=== PATIENT | male | born 1945 | race American Indian/Alaskan Native ===

== ENCOUNTER 2019-08-04 07:15 | Inpatient (IN) | payer OTHER ==
[~2019-08-04] VITALS: Ht 170.2 cm; Wt 77.1 kg
[2019-08-04] MEDS ORDERED: RELAFEN PO (08:00)
[2019-08-04] MEDS ORDERED: AMILODIPINE PO (08:00)
[2019-08-04] MEDS ORDERED: ASPIR 8181 MG PO (08:01)
[2019-08-09] MEDS ORDERED: NABUMETONE500 MG (08:06)
[2019-08-09] MEDS ORDERED: AMLODIPINE BESY10 MG PO (08:07)
[2019-08-11] MEDS ORDERED: DUI500 PO (15:50)
[2019-08-11] MEDS ORDERED: PERCOCET 5-3251 EACH PO (15:50)
[2019-08-11] MEDS ORDERED: ELIQUIS2.5 MG PO (15:50)
== END 2019-08-11 18:57 | DRG 470 ==
LOC: O/R 07:15 → SURG 08-09 05:38 → O/R 08-09 05:38 → SURG 08-09 14:01
PROVIDERS: ADMIT Orthopaedic Surgery
PROC: 0SR90J9 Replacement of Right Hip Joint with Synthetic Substitute, Cemented, Open Approach (ICD-10-PCS; principal; 2019-08-09 07:00)
DX: M16.11 Unilateral primary osteoarthritis, right hip (principal); D62 Acute posthemorrhagic anemia; M25.751 Osteophyte, right hip; M70.61 Trochanteric bursitis, right hip; I10 Essential (primary) hypertension

== ENCOUNTER 2021-02-05 17:25 | Inpatient (IN) | payer OTHER ==
[~2021-02-05] VITALS: Ht 170.2 cm; Wt 170.0 kg
[~2021-02-05 17:25] MED LIST: AMILODIPINE PO; AMLODIPINE BESY10 MG PO; ASPIR 8181 MG PO; DUI500 PO; ELIQUIS2.5 MG PO; NABUMETONE500 MG; PERCOCET 5-3251 EACH PO; RELAFEN PO
[2021-02-05] MEDS ORDERED: HYDRALAZINE HCL25 MG (17:36)
--- NOTE | 2021-02-05 17:37 | NUR ---
SE RECIBE THERMAL TECHNICIAN ALERTA Y ORIENTADO EN AMBULANCIA PARAMEDICOS REFIEREN QUE EL PTE SE CAIN EN EL PATIO DE SUCASA SE ENREDO CON UNOS CABLES EN EL PISO ,REFIERE PTE QUE SE LE DISLOCO LA CADERA DERECHA QUE FUE OPARADA POR EL EN 2019.
--- NOTE | 2021-02-05 18:19 | NUR ---
SE ORIENTA A PTE SOBRE PROCESO DE VENOPUNCION LEOLA DE MUESTRAS, ESTUDIOS A REALIZAR. PTE ES LLEVADO A AREA DE PLACA PARA REALIZAR LA MISMA. PTE SE RENNY CON AREA DE VENOPUNCION PATENTE Y LD DE EDEMA CON IV FLUID PATENTE.
--- NOTE | 2021-02-06 00:32 | NUR ---
SE RECIBE MASCULINO ALERTA EN [place] CON BARANDAS SEGURAS Y ELEVADAS, EN COMPANIA DE FAMILIAR. AREA DE VENOPUNCION LD DE EDEMA O ENROJECIMIENTO. RECIBIENDO 0.9% NSS @ 150 ML/HR. SE MANTIENE EN OBSERVACION POR CAMBIOS. EN ESPERA DE CONSULTA CON DR. SHAIKH.
--- NOTE | 2021-02-06 08:02 | NUR ---
SE RECIBE PTE DLE TURNO ANTERIOR, ALERTA Y ORIENTADO EN ANDRAE TEE ESFERAS, UBICADO EN [place] NIVEL MAS BAJO, WRIGHT DE IDENTIFICACION Y EN COMPANIA DE FAMILIAR. SE OBSERVA CON BUEN PATRON RESPIRATORIO Y PIEL TIBIA AL TACTO. IV PATENTE Y LD DE EDEMA O ERITEMA CON 0.9% NSS @150ML/HR. PENDIENTE A ENTREGAR U/A, PTE ORIENTADO SOBRE LA MISMA. PENDIENTE CONSULTA CON DR SHAIKH QUE SE ENCUENTRA EVALUANDO EL MISMO.
[2021-02-07] MEDS ORDERED: NABUMETONE750 MG (14:52)
[2021-02-07] MEDS ORDERED: PEPTO-BISM262 MG/15 (14:52)
[2021-02-08] MEDS ORDERED: DUI500 PO (08:04)
[2021-02-08] MEDS ORDERED: ULTRACET PO (08:04)
[2021-02-08] MEDS ORDERED: ELIQUIS2.5 MG PO (08:04)
== END 2021-02-08 15:00 | disposition home or self-care (01) | DRG 468 ==
LOC: ER 17:25 → SEC-K 02-06 08:10 → O/R 02-07 13:51
PROVIDERS: ADMIT Orthopaedic Surgery; ATTEND Orthopaedic Surgery
PROC: 0SW90JZ Revision of Synthetic Substitute in Right Hip Joint, Open Approach (ICD-10-PCS; principal; 2021-02-07 19:15)
DX: T84.020A Dislocation of internal right hip prosthesis, initial encounter (principal); Z96.641 Presence of right artificial hip joint; Y93.H2 Activity, gardening and landscaping; W18.39XA Other fall on same level, initial encounter; Y92.017 Garden or yard in single-family (private) house as the place of occurrence of the external cause; Y99.8 Other external cause status; I10 Essential (primary) hypertension

== ENCOUNTER 2022-04-01 18:55 | Inpatient (IN) | payer OTHER ==
[~2022-04-01] VITALS: Ht 177.8 cm; Wt 77.1 kg
[~2022-04-01 18:55] MED LIST changes: +HYDRALAZINE HCL25 MG; +NABUMETONE750 MG; +PEPTO-BISM262 MG/15; +ULTRACET PO
[2022-04-02] MEDS ORDERED: NABUMETONE750 MG (13:12)
[2022-04-02] MEDS ORDERED: HYDRALAZINE HCL25 MG (13:12)
[2022-04-02] MEDS ORDERED: ATORVASTATIN CA40 MG (13:12)
[2022-04-02] MEDS ORDERED: ST. JOSEPH ASPI81 M2 (13:12)
[2022-04-04] MEDS ORDERED: NABUMETONE750 MG PO (08:02)
== END 2022-04-04 12:44 | disposition home or self-care (01) | DRG 561 ==
LOC: ER 18:55 → SURH 04-02 04:52
PROVIDERS: Orthopaedic Surgery; ADMIT Internal Medicine; ATTEND Internal Medicine
PROC: 0SW9XJZ Revision of Synthetic Substitute in Right Hip Joint, External Approach (ICD-10-PCS; principal; 2022-04-03 13:00)
DX: T84.020A Dislocation of internal right hip prosthesis, initial encounter (principal); I11.9 Hypertensive heart disease without heart failure; M25.551 Pain in right hip; Z96.641 Presence of right artificial hip joint

== ENCOUNTER 2022-05-22 09:10 | Inpatient (IN) | payer OTHER | END 2022-05-26 14:47 | DRG 467 | LOC: O/R 09:10 → SURH 14:56 | PROVIDERS: ADMIT Orthopaedic Surgery | PROC: 0SR90J9 Replacement of Right Hip Joint with Synthetic Substitute, Cemented, Open Approach (ICD-10-PCS; principal; 2022-05-22) | PROC: 0SP90JZ Removal of Synthetic Substitute from Right Hip Joint, Open Approach (ICD-10-PCS; 2022-05-22) | PROC: 30233N1 Transfusion of Nonautologous Red Blood Cells into Peripheral Vein, Percutaneous Approach (ICD-10-PCS; 2022-05-24) | DX: T84.020A Dislocation of internal right hip prosthesis, initial encounter (principal); D62 Acute posthemorrhagic anemia; M25.751 Osteophyte, right hip; M89.70 Major osseous defect, unspecified site; I10 Essential (primary) hypertension; Z96.641 Presence of right artificial hip joint ==

== ENCOUNTER 2025-05-22 08:09 | Outpatient (CLI) | payer OTHER ==
[~2025-05-22 08:09] MED LIST changes: +ATORVASTATIN CA40 MG; +CEFADROXIL500 MG PO; +NABUMETONE750 MG PO; +ST. JOSEPH ASPI81 M2
== END 2025-05-22 08:10 | disposition home or self-care (01) ==
LOC: RAD 08:09
DX: R05.9 Cough, unspecified (principal)

== ENCOUNTER 2025-05-22 09:12 | Outpatient (CLI) | payer OTHER | END 2025-05-22 09:14 | disposition home or self-care (01) | LOC: NUCLEAR 09:12 | DX: Z13.820 Encounter for screening for osteoporosis (principal); M81.0 Age-related osteoporosis without current pathological fracture ==